=== PATIENT | male | born 2000 | race Caucasian/White ===

== ENCOUNTER → 2021-02-24 | Outpatient (CLI) | payer MEDICAID ==
[2021-02-24 10:47] LABS: BASO # 0.04 (0.02-0.10); EOS # 0.31 (0.04-0.40); EOS % 4.5 % (0.0-4.0); HEMATOCRIT 45.9 % (42.0-52.0); HEMOGLOBIN 15.2 g/dL (13.5-18.0); LYMPH# 2.48 (1.50-4.00); MEAN CELL VOLUME 81 fl (78-100); MEAN CORPUSCULAR HEMOGLOBIN 27 pg (27-31); MEAN CORPUSCULAR HGB CONC 33 g/dL (33-37); MEAN PLATELET VOLUME 9.3 fl (7.4-10.4); MONO # 0.62 (0.20-0.80); NEU # 3.44 (1.40-6.50); PLATELET COUNT 319 K/mm3 (130-400); RED BLOOD COUNT 5.67 M/mm3 (4.20-5.60); RED CELL DISTRIBUTION WIDTH 13.1 % (11.5-14.5); WHITE BLOOD COUNT 6.9 K/mm3 (4.8-10.8)
[2021-02-24 10:51] LABS: POTASSIUM 4.2 mmol/L (3.5-5.1); SODIUM 138 mmol/L (136-145)
[2021-02-24 10:52] LABS: ALBUMIN 4.3 g/dL (3.5-5.0)
[2021-02-24 10:53] LABS: CALCIUM 9.3 mg/dL (8.3-10.5)
[2021-02-24 10:54] LABS: GLUCOSE 89 mg/dL (75-110); TOTAL PROTEIN 7.1 g/dL (6.4-8.3)
[2021-02-24 10:55] LABS: CARBON DIOXIDE 23 mmol/L (22-29)
[2021-02-24 10:56] LABS: TOTAL BILIRUBIN 0.4 mg/dL (0.2-1.2)
[2021-02-24 11:00] LABS: AST-SGOT 37 U/L (5-34)
[2021-02-24 11:01] LABS: ALT/SGPT 117 U/L (0-55)
[2021-02-24 12:05] LABS: ERYTHROCYTE SEDIMENTATION RATE 0 mm/hr (0-15)
== END ==
LOC: LAB 10:23
PROVIDERS: Internal Medicine
DX: R06.00 Dyspnea, unspecified (principal)

== ENCOUNTER → 2021-02-25 | Outpatient (CLI) | payer MEDICAID | LOC: VAS 10:40 → RAD 11:30 | DX: R79.89 Other specified abnormal findings of blood chemistry (principal) ==

== ENCOUNTER → 2021-03-09 | Outpatient (CLI) | payer MEDICAID ==
[2021-03-09 23:57] LABS: FOLLICLE STIMULATING HORMONE 2.4 mIU/mL (1.0-12.0); LUTENIZING HORMONE 1.6 mIU/mL (0.6-12.1); PROLACTIN AMS 7.1 ng/mL (3.5-19.4)
== END ==
LOC: LAB 11:37
PROVIDERS: Internal Medicine
DX: E23.0 Hypopituitarism (principal); R06.00 Dyspnea, unspecified; R79.89 Other specified abnormal findings of blood chemistry

== ENCOUNTER → 2021-06-25 | Outpatient (CLI) | payer MEDICAID | LOC: LAB 11:39 | DX: R79.89 Other specified abnormal findings of blood chemistry (principal) ==